=== PATIENT | female | born 1965 | race Caucasian/White ===

== ENCOUNTER → 2020-04-03 | Day surgery (SDC) | payer OTHER ==
[2020-04-01 12:28] LABS: Basophils # (auto) 0 10 ^3/uL (0-0.2); Basophils % (auto) 0.3 % (0.0-2.0); Eosinophils # (auto) 0.1 10 ^3/uL (0-0.8); Eosinophils % (auto) 1.7 % (0.0-7.0); Hematocrit 41.6 % (36.0-46.0); Lymphocytes # (auto) 1.8 10 ^3/uL (0.4-5.4); Lymphocytes % (auto) 26.3 % (10.0-50.0); Mean Corpuscular Hemoglobin 31.4 pg (28.0-32.0); Mean Corpuscular Hgb Conc. 33.6 g/dL (32.0-36.0); Mean Corpuscular Volume 93.5 fL (80.0-100.0); Monocytes # (auto) 0.5 10 ^3/uL (0-1.3); Monocytes % (auto) 7.8 % (0.0-12.0); Neutrophils # (auto) 4.3 10 ^3/uL (1.6-8.6); Neutrophils % (auto) 63.9 % (37.0-80.0); Platelet Count (auto) 213 10^3/uL (140-450); Red Blood Cells 4.45 10^6/uL (4.0-5.20); Red Cell Distribution Width 12.9 % (11.8-14.3); White Blood Cell 6.8 10^3/uL (4.4-10.8)
[2020-04-01 12:43] LABS: INR 0.96 (0.9-1.15); Partial Thromboplastin Time 30.7 sec (23.64-32.05)
[~2020-04-03] VITALS: Ht 165.1 cm; Wt 64.4 kg
[~2020-04-03] MED LIST: SODIUM CHLORIDE LOCK 10 ML ONE; diphenhdrAMINE HCL 50 MG/1 ML VL ONE
[2020-04-03] MEDS: MIDAZOLAM HCL 5 MG/ML-1ML VIAL ONE ×3 (13:47→14:02)
[2020-04-03] MEDS: fentaNYL CITRATE 100 MCG/2 ML VL ONE ×3 (13:47→13:51)
[2020-04-04 14:04] VITALS: BP 112/72
== END | disposition home or self-care (01) ==
LOC: GI 12:42
PROVIDERS: ATTEND Internal Medicine Gastroenterology
DX: R19.4 Change in bowel habit (principal); D12.4 Benign neoplasm of descending colon; K63.89 Other specified diseases of intestine; K57.30 Diverticulosis of large intestine without perforation or abscess without bleeding; K64.8 Other hemorrhoids; Z98.890 Other specified postprocedural states; Z79.899 Other long term (current) drug therapy; Z90.710 Acquired absence of both cervix and uterus; Z11.59 Encounter for screening for other viral diseases
CPT/HCPCS: 36415; 45380; 45385; 85025; 85610; 85730; 88305; J1200; J2250; J3010; J7030; U0003; 99152